=== PATIENT | female | born 1995 | race Caucasian/White ===

== ENCOUNTER 2024-02-10 03:56 | Inpatient (IN) ==
[2024-02-10] MEDS: LACTATED RINGER'S 1,000 ML IV ONE (06:44)
[2024-02-10] MEDS ORDERED: OXYTOCIN 30 UNITS/NSS 30 UNITS/500 ML BAG IV PRN ×2 (07:56→18:05)
[2024-02-10] MEDS ORDERED: LIDOCAINE 1% LOCAL 20 ML VIAL INFIL PRN (07:56)
--- NOTE | 2024-02-10 08:01 | Labor Progress Brief Note ---
Date of Service February 10, 2024 Subjective Increasing pain; patient returned to hospital within a few hours of prior r/o labor, noting increased intensity and frequency of ctx. Has slowly changed from 1 to 3cm per RN exams, and now interested in epidural. Ongoing normal show. Assessment & Plan (1) Normal labor: Plan: Admit, PCN for GBS, epidural on request (labs ordered STAT to expedite), can AROM/augment PRN once comfortable. Physical Exam Genitourinary: Per RN, change to 3cm. FHT Cat 1 [place] Q5-6m Results & Data Vital Signs (Past 12 Hours) Vital Signs Temp Pulse Resp BP 02/10/24 07:02 98.1 F 16 02/10/24 07:01 76 119/79 02/10/24 04:24 97.9 F 86 18 130/81 02/10/24 04:10 98.2 F 86 18 130/81 Coding Level of Care Code None Diagnoses Normal labor O80; Z37.9
[2024-02-10] MEDS: LACTATED RINGER'S 1,000 ML IV PRN (08:14)
[2024-02-10] MEDS: PENICILLIN GK 6 MU in DEXTROSE 5% 250 ML IV STA (08:24)
[2024-02-10 08:25] LABS: Hematocrit (blood only) 36.5 % (37.0-47.0); Hemoglobin 12.5 g/dl (12.0-16.0); Mean Corpuscular Hemoglobin 30.4 pg (25.0-34.0); Mean Corpuscular Hgb Conc 34.2 g/dL (32.0-36.0); Mean Corpuscular Volume 88.8 fL (80.0-100.0); Platelet Count 247 K/uL (130-400); RDW Coefficient of Variation 12.9 % (11.5-14.5); RDW Standard Deviation 41.4 fL (36.4-46.3); Red Blood Count 4.11 M/uL (4.20-5.40); White Blood Count 18.41 K/ul (4.8-10.8)
--- NOTE | 2024-02-10 08:43 | Anesthesiology Consultation ---
Date of Service February 10, 2024 Assessment & Plan Chart Review Chart Review: Acceptable Risk for Surgery, Patient NOT seen in Pre Admission Testing and Acceptable Risk for Labor Epidural Consults Requested none ASA ASA2 Proposed Anesthesia Anesthesia Type: Labor Epidural and CSE History Height/Weight Height: 5 ft 9 in Weight: 108.59 kg Allergies Allergy/AdvReac Type Severity Reaction Status Date / Time No Known Allergies Allergy Verified 02/09/24 23:45 Medications Home Medications Medication Instructions Recorded Confirmed Last Taken 21-iron fu-folic acid 1 tab PO DAILY 07/03/23 02/09/24 02/09/24 10:00 [ Complete] pediatric multivitamin 1 tab PO DAILY 10/02/23 02/09/24 02/09/24 10:00 (Flintstones Multivitamin chewable tablet) docusate sodium 100 mg capsule 100 mg PO DAILY 02/09/24 02/09/24 02/09/24 11:00 (Colace) Active Medications Generic Name Dose Route Start Last Admin Trade Name Freq PRN Reason Stop Dose Admin Lactated Ringer's 1,000 mls @ 125 mls/hr 02/10/24 08:01 02/10/24 08:14 Lr IV 02/12/24 08:00 125 mls/hr .Q8H PRN Administration L&D Protocol Protocol Penicillin G Potassium 6 mu/ 262 mls @ 262 mls/hr 02/10/24 08:00 02/10/24 08:24 Dextrose IV 02/10/24 08:59 262 mls/hr NOW STA Administration Past Medical History Medical History Chlamydia Tx 2017 Varicella vaccination History of chicken pox obese anemia GERD Exercise / Class Metabolic Activity II 4-5 Yardwork/Stairs/Walk up hill Past Family History Family History Father , due to CA, age 56 Myocardial infarction Grandfather (Maternal) Prostate cancer Grandmother (Paternal) Lung cancer Grandmother (Maternal) Breast cancer Brother , , congenital No problems noted. Mother No problems noted. Sister Murmur "hole" in her heart Denies family history of Ovarian cancer Colorectal cancer Past Surgical History Surgical History S/P myringotomy with insertion of tube H/O oral surgery TONGUE S/P ACL repair S/P wisdom tooth extraction Past Anesthesia History No Hx of Anesthesia Complications and No Family Hx of Anesthesia Complications History of PONV No Hx of PONV and No Hx of Motion Sickness Social History Smoking Status: Never smoker Do You Dip or Chew Tobacco: No Hx Alcohol Use: No Hx Substance Use: No Physical Exam Vital Signs Last Vital Signs Temp 36.7 C 02/10/24 07:02 Pulse 76 02/10/24 07:01 Resp 16 02/10/24 07:02 BP 119/79 02/10/24 07:01 Testing Laboratory Results 02/10/24 08:06
[2024-02-10] MEDS: BUPIVACAINE 0.25% PF 30 ML VIAL ONE (09:16)
[2024-02-10] MEDS: fentaNYL citrate PF 100 MCG/2 ML VIAL ONE (09:16)
[2024-02-10] MEDS: fentANYL 2 MCG/ML BUPIVacaine 0.125%-NSS 100ML BAG ONE (09:17)
[2024-02-10] MEDS ORDERED: NALOXONE HCL 0.4 MG/1 ML VIAL/CARP IV PRN (09:18)
[2024-02-10] MEDS ORDERED: NALBUPHINE HCL INJ 10 MG/ML AMP IV PRN (09:18)
[2024-02-10] MEDS ORDERED: ONDANSETRON INJ 2 MG/ML 2 ML VIAL IV PRN (09:18)
[2024-02-10] MEDS ORDERED: ePHEDrine sulfate 50 MG/ML AMP IV PRN (09:18)
[2024-02-10] MEDS ORDERED: SODIUM CHLORIDE 0.9% PF INJ 10 ML VIAL EPI PRN (09:18)
[2024-02-10] MEDS ORDERED: fentaNYL citrate PF 100 MCG/2 ML VIAL EPI PRN (09:18)
[2024-02-10] MEDS ORDERED: BUPIVACAINE 0.25% PF 30 ML VIAL EPI PRN (09:18)
[2024-02-10] MEDS ORDERED: PROMETHAZINE 6.25 MG/50.25 ML BAG IV PRN (09:18)
[2024-02-10] MEDS ORDERED: LIDOCAINE 2% MPF LOCAL 5 ML VIAL EPI PRN (09:18)
[2024-02-10] MEDS ORDERED: NALOXONE HCL 1 MG in SODIUM CHLORIDE 0.9% 1,000 ML IV PRN (09:18)
[2024-02-10] MEDS ORDERED: ROPIVACAINE 0.5% PF 5 MG/ML 20 ML VIAL EPI PRN (09:18)
[2024-02-10] MEDS: LIDOCAINE 2%/EPINEPHRINE 1:200,000 20 ML PF EPI STA (09:31)
[2024-02-10] MEDS: OXYTOCIN 30 UNITS/NSS 30 UNITS/500 ML BAG IV PRN (12:28)
[2024-02-10] MEDS: PENICILLIN GK 3 MU in DEXTROSE 5% 100 ML IV PRN (12:34)
[2024-02-10] MEDS: SODIUM CHLORIDE 0.9% PF INJ 10 ML VIAL ONE (13:01)
[2024-02-10] MEDS: SODIUM CHLORIDE 0.9% PF INJ 10 ML VIAL EPI STA (13:02)
[2024-02-10] MEDS ORDERED: CALCIUM CARBONATE 500 MG CHEWABLE TAB PO PRN (14:26)
[2024-02-10] MEDS: ACETAMINOPHEN 325 MG TAB PO PRN (14:43)
[2024-02-10] MEDS: diphenhydrAMINE 50 MG/ML VIAL IV PRN (15:50)
[2024-02-10] MEDS: fentANYL 2 MCG/ML BUPIVacaine 0.125%-NSS 100ML BAG EPI PRN (17:31)
[2024-02-10] MEDS ORDERED: Nursing to Pharmacy Communication SCH (17:45)
[2024-02-10] MEDS ORDERED: bisacodyL 10 MG SUPP PR PRN (18:05)
[2024-02-10] MEDS ORDERED: oxyCODONE/ACETAMINOPHEN 5mg/325mg TAB PO PRN (18:05)
[2024-02-10] MEDS ORDERED: HYDROCORTISONE ACETATE 25 MG SUPP PR PRN (18:05)
--- NOTE | 2024-02-10 18:10 | Delivery Summary ---
Vaginal Delivery Summary Date of Service February 10, 2024 Vaginal Delivery Summary and 1st Degree LAC (vaginal) Patient is a 28-year-old 1 P0 female who presents at 39-1/7 weeks in active labor. She received effective epidural analgesia. Membranes ruptured for clear fluid spontaneously. She received 3 doses of penicillin for GBS prophylaxis prior to delivery. When she was in anterior lip she had an uncontrollable urge to push. The anterior lip was pushed back behind the baby's head and then she was fully dilated began to actively push. She pushed effectively over an intact perineum for delivery of a viable female infant. After the head was delivered, the rest of the infant delivered with ease and was placed on the mother's abdomen for further attention and drying. She was vigorous crying and moving all 4 limbs. After 1 minute, the cord was clamped and cut. After cord blood was obtained, the placenta was expressed intact with a three-vessel cord. bleeding was controlled with dilute Pitocin and fundal massage. The first-degree vaginal laceration was repaired with 3-0 chromic in the usual fashion. QBL was 551 mL. Mother and were doing well after delivery. [facility] Vaginal Delivery Charge Delivery Type Details: and 1st Degree LAC (vaginal)
--- NOTE | 2024-02-10 19:20 | Anesthesia Procedure Note ---
Date of Service February 10, 2024 Anesthesia Post Epidural Note Vital Signs Vital Signs: Temp Pulse Resp BP Pulse Ox 36.7 C 117 H 16 152/74 H 100 02/10/24 18:00 02/10/24 19:14 02/10/24 18:00 02/10/24 19:14 02/10/24 17:56 Notes Mental Status: alert / awake / arousable Nausea / Vomiting: adequately controlled Pain: adequately controlled Airway Patency, RR, SpO2: stable & adequate BP & HR: stable & adequate Hydration State: stable & adequate Neuraxial Anesthesia: was administered and sensory block is resolving Anesthetic Complications: no major complications apparent Epidural: Removed without complications and With tip intact
[2024-02-10] MEDS: LIDOCAINE 2%/EPINEPHRINE 1:200,000 20 ML PF ONE (19:24)
[2024-02-10] MEDS: ePHEDrine sulfate 50 MG/ML AMP ONE (19:24)
[2024-02-10] MEDS: DIPHTHER/TETAN/PERTUS Vaccine (Tdap, Adol/Adult) 0.5mL IM ONE (19:25)
[2024-02-10] MEDS: fentaNYL citrate PF 100 MCG/2 ML VIAL EPI STA (19:26)
[2024-02-10] MEDS: BUPIVACAINE 0.25% PF 30 ML VIAL EPI STA (19:26)
[2024-02-10] MEDS: DOCUSATE SODIUM 100 MG CAP PO SCH (20:25)
[2024-02-10] MEDS: IBUPROFEN 600 MG TAB PO PRN (20:25)
[2024-02-10] MEDS ORDERED: SODIUM CHLORIDE 0.9% 250 ML IV PRN (20:51)
[2024-02-11] MEDS: BENZOCAINE 20% SPRY 85 APPLN/85 GM CAN EXT PRN (02:57)
[2024-02-11 06:48] LABS: Hematocrit (blood only) 29.8 % (37.0-47.0); Mean Corpuscular Hemoglobin 30.6 pg (25.0-34.0); Mean Corpuscular Hgb Conc 33.6 g/dL (32.0-36.0); Mean Corpuscular Volume 91.1 fL (80.0-100.0); Mean Platelet Volume 9.8 fL (9.4-12.4); Platelet Count 206 K/uL (130-400); RDW Coefficient of Variation 13.2 % (11.5-14.5); RDW Standard Deviation 43.6 fL (36.4-46.3); Red Blood Count 3.27 M/uL (4.20-5.40); White Blood Count 16.21 K/ul (4.8-10.8)
[2024-02-11] MEDS: PRENATAL VITAMIN 1 TAB PO SCH (07:52)
--- NOTE | 2024-02-11 08:53 | Obstetrical Progress Note ---
Date of Service February 11, 2024 Assessment & Plan (1) Encounter for care and examination after delivery: satisfactory recovery continue current care plan Subjective Ambulation: ambulating normally Voiding: no voiding problems Passing Gas:: Yes Diet Tolerance:: regular diet Lochia:: Moderate Feeding Type:: breast feeding Review of Systems All systems reviewed & are unremarkable except as noted in HPI & below Physical Exam Constitutional WD/WN, vitals as above Psychiatric A+Ox3, euthymic affect Genitourinary OB Exam Abdomen: + fundal height Fundus: + firm and + relation to umbilicus (at U) Results & Data Vital Signs (Past 12 Hours) Vital Signs Temp Pulse Resp BP Pulse Ox O2 Del Method 02/11/24 02:54 98.2 F 80 16 138/80 100 Room Air 02/10/24 23:16 98.4 F 85 18 107/72 97 Room Air 02/10/24 21:00 98.6 F 103 H 18 117/76
[2024-02-11] MEDS: ACETAMINOPHEN 325 MG TAB PO PRN (09:23)
[2024-02-11 19:11] VITALS: O2SAT 98
[2024-02-11] MEDS ORDERED: bisacodyL 5 MG TABEC PO SCH (20:00)
[2024-02-12 06:22] LABS: Hematocrit (blood only) 30.6 % (37.0-47.0); Hemoglobin 10.3 g/dl (12.0-16.0)
--- NOTE | 2024-02-12 07:39 | Obstetrical Progress Note ---
Date of Service February 12, 2024 Assessment & Plan (1) Normal delivery at term: Plan: 2nd PPD foll with with 1st deg Lac at term No high risk in ANC. USG Doppler of left leg. Review report Possible discharge if normal. Advise to F/ U with orthopedics( sports) for ACL F/U after discharge. Admission and Anticipated Discharge Date Admission Date: February 10, 2024 Supervising Physician Co-Signing Physician Notes Resident Physician Supervision Note: I interviewed and examined the patient. Discussed with Dr. Pineda and agree with findings and plan as documented in the note. Any exceptions or clarifications are listed here: [None] Documented By: Paola Beltran MD, FACOG Subjective 28 years P1 2nd PPD foll with with 1st deg Lac at term No high risk in ANC. Complains of numbness and tingling in left foot below knee No issue above knee and on right leg. Feels leg leg is twisted while walking, saw her walking too but no drop or gross abnormality. H/O ACL surgery on same side too. Ambulation + Gas+ Diet: Normal Lochia: Mild Pain: Mild Review of Systems Review of Systems: As per HPi Physical Exam Physical Exam: General: Alert and oriented. No acute distress. CV: Regular rate and rhythm. No murmurs. Respiratory: CTA bilaterally. No rhonchi, wheezes, or crackles. No increased work of breathing. Abdomen: Positive bowel sounds. Soft, nontender, non distended. Uterus: Fundus firm and palpable between umbilicus and SP. Lower extremities: No LE edema. No deep calf pain. Results & Data Vital Signs (Past 12 Hours) Vital Signs Temp Pulse Resp BP Pulse Ox O2 Del Method 02/11/24 23:32 36.6 C 71 18 100/66 98 Room Air Resident Activity Tracking Resident Involvement: Resident Care Provided Care Provided: OB Delivery
[2024-02-12 07:40] VITALS: BP 125/82; RESP 16; TEMP 98.6
[2024-02-12 08:45] VITALS: PULSE 84
--- NOTE | 2024-02-12 09:14 | Ultrasound Report ---
LEFT LOWER EXTREMITY VENOUS DOPPLER HISTORY: R/O DVT; numbness and tingling in left COMPARISON STUDY: None. FINDINGS: There is normal compressibility, flow, and augmentation within the left lower extremity kallie p venous system. IMPRESSION: No DVT within the left lower extremity. ACT 112: Negative or not required by law. Electronically signed by: Woodrow Shin M.D. 02/12/2024 9:13 AM
== END 2024-02-12 11:40 | disposition home or self-care (01) | DRG 807 ==
LOC: OPB 03:56 → 4S1 03:58 → 4E2 20:35

== ENCOUNTER 2025-05-04 04:11 | Inpatient (IN) ==
[2025-05-04] MEDS ORDERED: LIDOCAINE 1% LOCAL 20 ML VIAL INFIL PRN (05:20)
[2025-05-04] MEDS ORDERED: OXYTOCIN 30 UNITS/NSS 30 UNITS/500 ML BAG IV PRN ×2 (05:20→17:25)
--- NOTE | 2025-05-04 05:22 | History & Physical Report ---
Date of Service May 04, 2025 Assessment & Plan (1) Normal labor: Plan admit, category one. expectant management. anticipate . History of Present Illness Chief Complaint: rom, contractions Primary Care Provider: Alka Choi MD Patient is a 29yowf with iup at38 07/26 who presents to labor and delivery with rom and contractions. and Delivery Plans Patient's Brother & sister-congenital heart defect Echo ~22-24 weeks 02/04/25--normal Consider eIOL at 39wks due to EDC 05/15. OB Labs: Blood Type B Positive 10/03/24 Antibody Screen NEGATIVE 10/03/24 Hgb 12.1 g/dl (12.0-16.0) 02/21/25 Hct 36.6 % (37.0-47.0) L 02/21/25 MCV 87.1 fL (80.0-100.0) 10/03/24 Plt Count 337 K/uL (130-400) 10/03/24 Rubella IgG Antibody Immune (Immune) 10/03/24 RPR Nonreactive (Nonreactive) 07/10/23 Treponema pallidum Ab Negative (Negative) 02/21/25 Hep Bs Antigen Negative (Negative) 10/03/24 Hep Bs Antigen NON-REACTIVE (NON-REACTIVE) 07/10/23 Hepatitis C Antibody Negative (Negative) 10/03/24 Hepatitis C Ab (EIA) NON-REACTIVE (NON-REACTIVE) 07/10/23 HIV 1&2 Ab/P24 Ag 4thGn Negative (Negative) 10/03/24 HIV (1&2) Ag & Ab Conf NON-REACTIVE (NON-REACTIVE) 07/10/23 Glucose 1 Hr 50 gm 112 mg/dl (70-130) 02/21/25 OB Optional Labs: Chlamydia trachomatis RNA Not Detected (NotDetected) 10/03/24 Neisseria gonorrhoeae RNA Not Detected (NotDetected) 10/03/24 Thyroid Stimulating Hormone (TSH) 1.754 uIu/ml (0.300-4.500) 07/18/23 Labs Reviewed: cf/sma-negative--mln cfdna-low risk--mln gbs neg Allergies Allergy/AdvReac Type Severity Reaction Status Date / Time No Known Allergies Allergy Verified 04/30/25 13:07 Home Medications Medication Instructions Recorded Confirmed Type Pepcid PO 05/04/25 History Tums PO 05/04/25 History Patient History Medical History Lumbosacral radiculopathy Mucocele of salivary gland Chlamydia Tx 2017 Varicella vaccination History of chicken pox Surgical History S/P myringotomy with insertion of tube H/O oral surgery mucocele TONGUE S/P ACL repair S/P wisdom tooth extraction Family History Father , due to DC, age 56 Myocardial infarction Grandfather (Maternal) Prostate cancer Grandmother (Paternal) Lung cancer Grandmother (Maternal) Breast cancer Brother , , congenital heart defect-L heart syndrome No problems noted. Mother No problems noted. Sister Murmur "hole" in her heart Denies family history of Ovarian cancer Colorectal cancer Social History Smoking Status: Never smoker Second Hand Exposure: No; Do You Dip or Chew Tobacco: No; Tobacco Cessation Education Requested by Patient: No Hx Alcohol Use: No Hx Substance Use: No Preferred Language: Uzbek Communication Ability: Effective Visual Impairment: No Limitations Hearing Ability: Normal Order Picker/Assembler Required: No Beliefs That Will Affect Care: None marital status: marital status details: Fabian Escobar(33) [phone] Current Living Situation: Spouse Current Living Situation Comment: daughter and dog current occupational status: employed current occupation: [employer] How many Children do You have: 1 Feels Safe at Home: Yes Safety Concerns: Feels Safe At This Time Childhood Exposure to Second-Hand Smoke: No Diet: regular caffeine: No during the past year weight has: other Dental Care, Regularly: Yes Physical Activity Frequency: Does not Exercise Seatbelt Use: always Sunscreen Use: Yes Assistive Devices: None OB History Past Pregnancies Del. Date GA wks Lbr Lgth wt Sex Type del Anes Place Del Prov ? Comment 02/10/24 39 7lb 7.6oz F Epi dural [facility] [employer] History noncontributory Physical Exam Constitutional: WD/WN, vitals as above Gastrointestinal (Abdomen): soft, gravid Psychiatric: A+Ox3, euthymic affect Genitourinary: grossly ruptured, blood tinged fluid cx--/-2/post toco--q2-4min efm--150s with mod variability, accels to 170s, no decels Results & Data Vital Signs (Past 12 Hours) Vital Signs Temp Pulse Resp BP 05/04/25 04:37 80 133/80 05/04/25 04:29 36.9 C 18 Coding Level of Care Code None Diagnoses Normal labor O80; Z37.9
[2025-05-04 06:17] LABS: Hematocrit (blood only) 35.6 % (37.0-47.0); Hemoglobin 12.2 g/dL (12.0-16.0); Mean Corpuscular Hemoglobin 29.9 pg (25.0-34.0); Mean Corpuscular Volume 87.3 fL (80.0-100.0); Platelet Count 220 K/uL (130-400); RDW Standard Deviation 40.7 fL (36.4-46.3); Red Blood Count 4.08 M/uL (4.20-5.40); White Blood Count 9.95 K/ul (4.8-10.8)
--- NOTE | 2025-05-04 09:32 | Labor Progress Brief Note ---
Date of Service May 04, 2025 Subjective Breathing through contractions, more uncomfortable Assessment & Plan (1) Normal labor: Plan making nice progress, cont expectant management. fetus category one. anticipate . Admission and Anticipated Discharge Date Admission Date: May 04, 2025 Physical Exam Physical Exam: cx--5/75/-2 toco--q2-3min efm--150s with mod variability, small accels, no decels Results & Data Vital Signs (Past 12 Hours) Vital Signs Temp Pulse Resp BP O2 Del Method 05/04/25 07:28 68 129/73 05/04/25 07:00 36.8 C Room Air 05/04/25 04:37 80 133/80 05/04/25 04:29 36.9 C 18 Coding Level of Care Code None Diagnoses Normal labor O80; Z37.9
[2025-05-04] MEDS: LACTATED RINGER'S 1,000 ML IV PRN (09:33)
--- NOTE | 2025-05-04 10:30 | Anesthesiology Consultation ---
Date of Service May 04, 2025 Assessment & Plan Chart Review Chart Review: Acceptable Risk for Surgery and Patient NOT seen in Pre Admission Testing Consults Requested none ASA ASA2 Proposed Anesthesia Anesthesia Type: Labor Epidural and CSE History Height/Weight Height: 5 ft 9 in Weight: 107.048 kg Allergies Allergy/AdvReac Type Severity Reaction Status Date / Time No Known Allergies Allergy Verified 04/30/25 13:07 Medications Home Medications Medication Instructions Recorded Confirmed Last Taken Pepcid PO 05/04/25 05/03/25 08:00 Tums PO 05/04/25 05/03/25 21:00 Active Medications Generic Name Dose Route Start Last Admin Trade Name Freq PRN Reason Stop Dose Admin Lactated Ringer's 1,000 mls @ 125 mls/hr 05/04/25 05:20 05/04/25 10:04 Lr IV 05/06/25 05:19 125 mls/hr .Q8H PRN Infusion L&D Protocol Protocol Past Medical History Medical History Lumbosacral radiculopathy Mucocele of salivary gland Chlamydia Tx 2017 Varicella vaccination History of chicken pox Gerd Obese anemia Exercise / Class Metabolic Activity II 4-5 Yardwork/Stairs/Walk up hill Past Family History Family History Father , due to [place], age 56 Myocardial infarction Grandfather (Maternal) Prostate cancer Grandmother (Paternal) Lung cancer Grandmother (Maternal) Breast cancer Brother , , congenital heart defect-L heart syndrome No problems noted. Mother No problems noted. Sister Murmur "hole" in her heart Denies family history of Ovarian cancer Colorectal cancer Past Surgical History Surgical History S/P myringotomy with insertion of tube H/O oral surgery mucocele TONGUE S/P ACL repair S/P wisdom tooth extraction Past Anesthesia History No Hx of Anesthesia Complications and No Family Hx of Anesthesia Complications History of PONV No Hx of PONV and No Hx of Motion Sickness Social History Smoking Status: Never smoker Do You Dip or Chew Tobacco: No Hx Alcohol Use: No Hx Substance Use: No substance use type: does not use Physical Exam Vital Signs Last Vital Signs Temp 36.8 C 05/04/25 07:00 Pulse 77 05/04/25 10:24 Resp 18 05/04/25 04:29 BP 129/73 05/04/25 07:28 Pulse Ox 99 05/04/25 10:24 O2 Del Method Room Air 05/04/25 07:00 Testing Laboratory Results 05/04/25 05:35
[2025-05-04] MEDS: BUPIVACAINE 0.25% PF 30 ML VIAL ONE (11:10)
[2025-05-04] MEDS: LIDOCAINE 2%/EPINEPHRINE 1:200,000 20 ML PF ONE (11:10)
[2025-05-04] MEDS ORDERED: NALOXONE HCL 1 MG in SODIUM CHLORIDE 0.9% 1,000 ML IV PRN (11:13)
[2025-05-04] MEDS ORDERED: SODIUM CHLORIDE 0.9% PF INJ 10 ML VIAL EPI PRN (11:13)
[2025-05-04] MEDS ORDERED: fentANYL 2 MCG/ML BUPIVacaine 0.125%-NSS 100ML BAG EPI PRN (11:13)
[2025-05-04] MEDS ORDERED: ROPIVACAINE 0.5% PF 5 MG/ML 20 ML VIAL EPI PRN (11:13)
[2025-05-04] MEDS ORDERED: LIDOCAINE 2% MPF LOCAL 5 ML VIAL EPI PRN (11:13)
[2025-05-04] MEDS ORDERED: ONDANSETRON INJ 2 MG/ML 2 ML VIAL IV PRN (11:13)
[2025-05-04] MEDS ORDERED: NALOXONE HCL 0.4 MG/1 ML VIAL/CARP IV PRN (11:13)
[2025-05-04] MEDS ORDERED: PROMETHAZINE 6.25 MG/50.25 ML BAG IV PRN (11:13)
[2025-05-04] MEDS ORDERED: BUPIVACAINE 0.25% PF 30 ML VIAL EPI PRN (11:13)
[2025-05-04] MEDS ORDERED: diphenhydrAMINE 50 MG/ML VIAL IV PRN (11:13)
[2025-05-04] MEDS ORDERED: NALBUPHINE HCL INJ 10 MG/ML AMP IV PRN (11:13)
[2025-05-04] MEDS: fentANYL 2 MCG/ML BUPIVacaine 0.125%-NSS 100ML BAG ONE (11:15)
[2025-05-04] MEDS: SODIUM CHLORIDE 0.9% PF INJ 10 ML VIAL ONE (14:06)
--- NOTE | 2025-05-04 14:06 | Labor Progress Brief Note ---
Date of Service May 04, 2025 Subjective comfortable after epidural. blood pressure has recovered. Assessment & Plan (1) Normal labor: Plan Will start a little pit to get in a more regular pattern. fetus category one. anticipate . Admission and Anticipated Discharge Date Admission Date: May 04, 2025 Physical Exam Physical Exam: cx--6/100/-2 toco--q2-4min efm--150s with mod variability, accels present , no decels Results & Data Vital Signs (Past 12 Hours) Vital Signs Temp Pulse Resp BP Pulse Ox O2 Del Method 05/04/25 14:02 101 H 91 05/04/25 13:59 89 100 05/04/25 13:55 96 H 107/66 05/04/25 13:54 101 H 99 05/04/25 13:49 105 H 100 05/04/25 13:44 93 H 100 05/04/25 13:40 89 108/66 05/04/25 13:39 83 100 05/04/25 13:34 93 H 100 05/04/25 13:29 90 100 05/04/25 13:25 99 H 105/61 05/04/25 13:24 95 H 100 05/04/25 13:19 99 H 100 05/04/25 13:14 102 H 100 05/04/25 13:13 18 05/04/25 13:13 36.8 C 18 05/04/25 13:10 109 H 115/72 05/04/25 13:09 93 H 100 05/04/25 13:07 103 H 113/60 05/04/25 13:06 96 H 194/123 H 05/04/25 13:04 87 98 05/04/25 12:59 102 H 100 05/04/25 12:54 78 100 05/04/25 12:49 97 H 100 05/04/25 12:44 79 100 05/04/25 12:42 173 H 112/67 05/04/25 12:39 93 H 99 05/04/25 12:34 88 98 05/04/25 12:29 88 99 05/04/25 12:27 76 102/70 05/04/25 12:24 80 98 05/04/25 12:19 90 98 05/04/25 12:14 78 97 05/04/25 12:11 85 99/58 L 05/04/25 12:09 77 97 05/04/25 12:04 89 97 05/04/25 11:59 89 97 05/04/25 11:58 36.8 C 18 05/04/25 11:54 94 H 97 05/04/25 11:52 86 103/68 05/04/25 11:49 81 97 05/04/25 11:45 86 104/63 05/04/25 11:44 86 96 05/04/25 11:43 71 104/63 05/04/25 11:41 92 H 99/60 L 05/04/25 11:39 80 92/57 L 96 05/04/25 11:37 84 99/59 L 05/04/25 11:35 80 92/54 L 05/04/25 11:34 88 94 05/04/25 11:33 105 H 89/52 L 05/04/25 11:31 82 88/52 L 05/04/25 11:29 77 93/50 L 96 05/04/25 11:27 100 H 93/52 L 05/04/25 11:25 75 95/53 L 05/04/25 11:24 88 96 05/04/25 11:23 74 87/49 L 05/04/25 11:21 77 93/50 L 05/04/25 11:19 97 05/04/25 11:19 75 05/04/25 11:19 72 73/38 L 05/04/25 11:18 70 75/40 L 05/04/25 11:16 67 81/47 L 05/04/25 11:14 97 05/04/25 11:14 73 05/04/25 11:14 97/52 L 05/04/25 11:14 61 62/37 L 05/04/25 11:09 111 H 98 05/04/25 11:04 89 98 05/04/25 10:59 77 99 05/04/25 10:54 80 99 05/04/25 10:49 72 100 05/04/25 10:44 82 100 05/04/25 10:42 79 92 05/04/25 10:39 76 100 05/04/25 10:34 78 99 05/04/25 10:29 81 100 05/04/25 10:24 77 99 05/04/25 10:19 78 100 05/04/25 10:15 86 92 05/04/25 10:14 78 100 05/04/25 10:09 73 100 05/04/25 07:28 68 129/73 05/04/25 07:00 36.8 C Room Air 05/04/25 04:37 80 133/80 05/04/25 04:29 36.9 C 18 Coding Level of Care Code None Diagnoses Normal labor O80; Z37.9
[2025-05-04] MEDS: BUPIVACAINE 0.25% PF 30 ML VIAL EPI STA (14:07)
[2025-05-04] MEDS: LIDOCAINE 2%/EPINEPHRINE 1:200,000 20 ML PF EPI STA (14:07)
[2025-05-04] MEDS: SODIUM CHLORIDE 0.9% PF INJ 10 ML VIAL EPI STA (14:07)
[2025-05-04] MEDS: OXYTOCIN 30 UNITS/NSS 30 UNITS/500 ML BAG IV PRN (14:20)
--- NOTE | 2025-05-04 17:00 | Delivery Summary ---
Vaginal Delivery Summary Date of Service May 04, 2025 Vaginal Delivery Summary and 1st Degree LAC Pre-operative Diagnosis: at 38 weeks srom and labor Post-operative Diagnosis: same Procedure: epidural pitocin first degree laceration and repair QBL: 161cc Anesthesia: epidural Procedure: The patient had an urge to push. An anterior lip was reduced and the patient was able to push. The patient pushed for 2 contractions to deliver a viable male in anna position. I heard a pop on delivery of the anterior shoulder (left) but the shoulder delivered easily. The rest of the baby was then delivered slowly. The baby was vigorous. The nose and mouth were bulb suctioned and the infant was placed in the maternal abdomen for drying and attention. Cord was clamped and cut at one minute of life. Cord blood and segment obtained. Placenta delivered spontaneous, intact with a three vessel cord. Cervix/sulci/rectum were intact. A first degree perineal laceration was repaired in the normal standard fashion. Hemostasis obtained with dilute pitocin and fundal massage. Apgars were 9/9. Mother and baby doing well at the end of the delivery. [facility] Vaginal Delivery Charge Delivery Type Details: and 1st Degree LAC
--- NOTE | 2025-05-04 17:06 | Anesthesia Procedure Note ---
Date of Service May 04, 2025 Anesthesia Post Epidural Note Vital Signs Vital Signs: Temp Pulse Resp BP Pulse Ox O2 Del Method 37.0 C 126 H 16 156/91 H 100 Room Air 05/04/25 15:05 05/04/25 16:34 05/04/25 16:30 05/04/25 16:26 05/04/25 16:34 05/04/25 07:00 Pain Intensity Abdomen: Pain Intensity: 0 Notes Mental Status: alert / awake / arousable Nausea / Vomiting: adequately controlled Pain: adequately controlled Airway Patency, RR, SpO2: stable & adequate BP & HR: stable & adequate Hydration State: stable & adequate Neuraxial Anesthesia: was administered and sensory block is resolving Anesthetic Complications: no major complications apparent Epidural: Removed without complications and With tip intact
[2025-05-04] MEDS ORDERED: HYDROCORTISONE ACETATE 25 MG SUPP PR PRN (17:25)
[2025-05-04] MEDS ORDERED: BENZOCAINE 20% SPRY 85 APPLN/85 GM CAN EXT PRN (17:25)
[2025-05-04] MEDS ORDERED: DIPHTHER/TETAN/PERTUS Vaccine (Tdap, Adol/Adult) 0.5mL IM ONE (17:25)
[2025-05-04] MEDS: IBUPROFEN 600 MG TAB PO PRN (18:18)
[2025-05-04] MEDS: DOCUSATE SODIUM 100 MG CAP PO SCH (20:52)
[2025-05-04] MEDS: ACETAMINOPHEN 325 MG TAB PO PRN (23:11)
[2025-05-05 06:27] LABS: Hematocrit (blood only) 29.3 % (37.0-47.0); Hemoglobin 10.0 g/dL (12.0-16.0)
--- NOTE | 2025-05-05 07:36 | Obstetrical Progress Note ---
Date of Service May 05, 2025 Assessment & Plan (1) Encounter for assessment: Plan Desires d/c later today. Instructions reviewed. f/u in 6 weeks. Day #:: 1 Subjective Ambulation: ambulating normally Voiding: no voiding problems Passing Gas:: No Diet Tolerance:: regular diet Lochia:: Small Feeding Type:: breast feeding Notes alot of uterine cramping, painful. Bleeding ok. Physical Exam Constitutional WD/WN, vitals as above Cardiovascular Extremities: + edema (tr); no calf tenderness Gastrointestinal (Abdomen) soft, nt, nd, ff/nt at u. Psychiatric A+Ox3, euthymic affect Results & Data Vital Signs (Past 12 Hours) Vital Signs Temp Pulse Resp BP Pulse Ox O2 Del Method 05/05/25 03:10 36.4 C L 60 16 104/66 98 Room Air 05/04/25 23:10 36.7 C 74 16 114/71 97 Room Air 05/04/25 20:15 36.9 C 84 16 104/67 98 Room Air
[2025-05-05] MEDS: PRENATAL VITAMIN 1 TAB PO SCH (07:41)
[2025-05-05 12:12] VITALS: RESP 16; TEMP 97.7; O2SAT 97
[2025-05-05 16:13] VITALS: BP 104/70; PULSE 71
== END 2025-05-05 17:50 | disposition home or self-care (01) | DRG 807 ==
LOC: OPB 04:11 → 4S1 04:20 → 4E2 19:51